=== PATIENT | male | born 1970 | race Caucasian/White ===

== ENCOUNTER 2023-08-14 07:53 | Emergency (ER) | payer BC, SELFPAY ==
--- NOTE | 2023-08-14 08:00 | ED.GENMED ---
History of Present Illness
General
Chief Complaint: Dizziness
Time Seen by Provider: 08/14/23 07:58
Travel History
Have you had any contact with someone who has COVID-19?: No
Do you have any symptoms of coronavirus? Fever > 100 degrees, chills, cough, shortness of breath, sore throat, loss of taste or smell, muscle aches, or headache?: No
History of Present Illness
History of Present Illness:
HPI: The patient works at [employer]. He comes in because of progression of dizziness and headache on the left side. This started about a month ago associated with an infected tooth. He states that he saw an ENT physician and has
him on antibiotics and wanted to get an MRI at some point. The patient states that ENT was suspecting M�ni�re's. The MRI was not set up. He was at [facility] yesterday for similar symptoms but no neuroimaging was obtained.
EXAM:
GENERAL: Well appearing in no distress
HEENT: Moist oral mucosa, minimal tenderness to the left side of the jaw
CARDIOVASCULAR: No murmurs, normal heart rate, regular rhythm, No chest wall tenderness
PULMONARY: No respiratory distress, breath sounds are clear and equal
ABDOMEN: Soft with no peritoneal signs, no tenderness
NEUROLOGIC: Excellent strength all extremities, no coordination deficits, normal finger-nose testing
PSYCHIATRIC: Appropriate mental status, normal insight and judgement
EXTREMITIES: Nontender, no edema, moves all extremities equally
SKIN: No rash, no lesions
TIME OF INITIAL ENCOUNTER: 8 AM
NUMBER AND COMPLEXITY OF PROBLEMS ADDRESSED AT THE ENCOUNTER
� Chronic conditions affecting care: Depression
� Acute Exacerbation and/or Progression of Chronic Illness: This is a subacute problem
� Differential Diagnosis includes: Intracranial mass, intracranial bleeding, hyponatremia, other electrolyte abnormality, anemia, M�ni�re's
AMOUNT AND/OR COMPLEXITY OF DATA TO BE REVIEWED AND ANALYZED
� I performed an independent evaluation of and my interpretation is:
EKG: Sinus 69, left axis deviation, no acute ST abnormality, borderline LVH
CT: CT imaging suggest right-sided ethmoid sinus disease. No intracranial abnormality
X-rays:
Laboratory Studies: White count and hemoglobin are both normal, chemistries are normal
Other:
� Review of other/old records: The patient was seen here 2019 with lumbar radiculopathy
� Clinical information was obtained by an independent historian: I spoke to EMS at bedside. I then spoke to Armin Sahu, brother, as he called here earlier voicing his concerns. Shola Hernandez called brother to inform him
that he was crying in his truck. He is on 'a happy pill' and pt states he has been taking it. He has had hypochondria / panic attacks.
� Prescriptions/Medications Considered but not given:
� Further testing considered but not performed:
RISK OF COMPLICATIONS AND/OR MORBIDITY OR MORTALITY OF PATIENT MANAGEMENT
� Social determinants of health affecting care: Works at [employer],
� Discussion with other providers: Both brother and roommate called concerned for crisis evaluation�crisis did evaluate the patient at 9 AM and crisis agrees that there is no clear indication for psychiatric treatment at this
time.
� Escalation of care including admission/observation vs risk of discharge considered: Will give IV fluids and check neuroimaging as well as labs. The patient is well-appearing. The patient states that he is on amoxicillin (not
Augmentin). Will switch to Augmentin with steroids as well. His ENT is through [place].
Past History
Past History
ED Past Medical History: Psychiatric (depression) and Other (Lyme disease)
Phy Exam
Physical Exam
Physical Exam:
See HPI
Course
Orders/Labs/Results
Orders:
Orders
08/14/23 07:57
Electrocardiogram (*1) Urgent
Reason for Study: Vertigo / Dizzy
EKG- Treatment ONCE
08/14/23 07:58
CT Head W/o Iv Contrast Urgent
Comment:
Reason For Exam: L YBARRA, dizzy
08/14/23 08:00
0.9% Sodium Chloride 1000 ml [Nss] 1,000 ml IV BOLUS
08/14/23 08:12
CMP [Comprehensive Metabolic Panel] Urgent
Complete Blood Count/With Diff Urgent
08/14/23 08:35
Crisis Consult Urgent
Reason for Consult: crisis eval
Abnormal Lab Results
08/14/23
08:12
RBC 4.48 L 10^6/uL
(4.70-6.10)
Hct 38.1 L %
(39.0-52.0)
08/14/23 08:12
08/14/23 08:12
Vital Signs
Initial and Last Documented VS:
Initial Vital Signs
Temp Pulse Resp BP Pulse Ox
97.5 F 70 16 142/88 100
08/14/23 08:01 08/14/23 08:01 08/14/23 08:01 08/14/23 08:01 08/14/23 08:01
Last Documented Vital Signs
Temp Pulse Resp BP Pulse Ox
97.5 F 70 16 142/88 100
08/14/23 08:01 08/14/23 08:01 08/14/23 08:01 08/14/23 08:01 08/14/23 08:01
*Critical Care Note
Total Time (30-74mins, 75-104mins- exclusive of procedures): Not Applicable
ED Attending Note
-
Portions of this chart may have been created with voice recognition software.� Occasional wrong word or��sound alike� substitutions may have occurred due to the inherent limitations of voice recognition software.
Discharge Plan
Departure
Patient Disposition: Home (Routine Discharge)
Date of Disposition: 08/14/23
Time of Disposition: 09:05
Patient with high blood pressure during this ER visit?: Yes
Discharge Problem:
Dizziness
Instructions: Dizziness
Prescriptions:
New
amoxicillin-pot clavulanate 875-125 mg tablet
1 tab PO BID Qty: 14 0RF
prednisone 50 mg tablet
50 mg PO DAILY Qty: 5 0RF
No Action
sertraline 100 mg Tablet
100 mg PO DAILY
Referrals:
Bradley Terry MD [Active] - Follow up in 5-7 days
Afshin Monroe MD [Active] - Follow up in 5-7 days
UNKNOWN - PT DOES,NOT KNOW [Family Provider] -
Activity Restrictions/Additional Instructions:
The radiologist notes right-sided ethmoid sinusitis. I have switched you to a stronger antibiotic�this 1 will have amoxicillin with a second ingredient therefore stop the regular amoxicillin that you are already on. We can also try steroids which
may help dizziness as well and help decrease inflammation. I recommend that you follow-up with your ENT doctor at [place]. I have also given you the contact information for a local neurologist and local ENT associated with [place].
Interventions
Interventions:
*Risk Screen - Suicide Last Done: 08/14/23 08:14
*General Assessment Last Done: 08/14/23 08:14
*Neglect/Abuse Screening Last Done: 08/14/23 08:14
ED- Fall Risk Assessment Last Done: 08/14/23 08:02
*ED COVID-19 Vaccine History Last Done: 08/14/23 08:02
ED- Neurological Assessment Last Done: 08/14/23 08:08
ED- Cardiac Assessment Last Done: 08/14/23 08:02
Discharge Date and Time
Print Language: ITALIAN
[2023-08-14 08:01] VITALS: BP 142/88
[2023-08-14] MEDS: NSS 1000 IV (08:11)
[2023-08-14 08:25] LABS: % Basophils 0.4 % (0-2); % Eosinophils 3.7 % (0-6); % Immature Granulocytes 0.4 % (0-0.5); % Monocytes 9.3 % (1.7-9.3); % Neutrophils 58.2 % (42.2-75.2); Absolute Eosinophils 0.3 10^3/uL (0-0.7); Absolute Lymphocytes 1.9 10^3/uL (1.2-3.4); Absolute Monocytes 0.6 10^3/uL (0.1-0.6); Hematocrit 38.1 % (39.0-52.0); Hemoglobin 13.6 g/dL (13.0-18.0); Mean Corp Hgb Conc. 35.7 g/dL (33.0-37.0); Mean Corpuscular Hgb 30.4 pg (27.0-31.0); Mean Platelet Volume 9.1 fL (7.4-10.4); Nucleated Red Blood Cells % 0 % (-); Platelet Count 236 10^3/uL (130-400); Red Blood Cell Count 4.48 10^6/uL (4.70-6.10); Red Cell Dist. Width 11.5 % (11.5-14.5); White Blood Cell Count 6.8 10^3/uL (4.8-10.8)
[2023-08-14 08:43] LABS: ALT (SGPT) 41 U/L (0-50); AST (SGOT) 30 U/L (17-59); Albumin 4.8 g/dl (3.5-5.0); Alkaline Phosphatase 48 U/L (38-126); Blood Urea Nitrogen 19 mg/dl (9-20); Calcium 9.8 mg/dl (8.4-10.2); Carbon Dioxide 28 mmol/L (22-30); Chloride 99 mmol/L (98-107); Glucose 98 mg/dl (70-99); Potassium 4.1 mmol/L (3.5-5.1); Sodium 136 mmol/L (135-145); Total Bilirubin 0.6 mg/dl (0.2-1.3); Total Protein 7.9 g/dl (6.3-8.2); eGFR > 60.00
== END 2023-08-14 10:18 | disposition home or self-care (01) ==
LOC: EMR 07:53
PROVIDERS: EMERGENCY PHYSICIAN Emergency Medicine
DX: R42 Dizziness and giddiness (principal); R51.9 Headache, unspecified
CPT/HCPCS: 99284; 96360; 70450; 80053; 85025; 93005

== ENCOUNTER 2023-09-18 22:21 | Emergency (ER) | payer BC, OTHER, SELFPAY ==
[2023-09-18 22:27] VITALS: BMI 25.7
[2023-09-18 22:32] VITALS: BP 132/58
[2023-09-18 22:35] VITALS: BP 132/58
[2023-09-18 22:41] LABS: % Basophils 0.2 % (0-2); % Immature Granulocytes 0.2 % (0-0.5); % Lymphocytes 13.2 % (20.5-51.1); % Monocytes 9.3 % (1.7-9.3); % Neutrophils 72.1 % (42.2-75.2); Absolute Eosinophils 0.4 10^3/uL (0-0.7); Absolute Lymphocytes 1.1 10^3/uL (1.2-3.4); Absolute Monocytes 0.8 10^3/uL (0.1-0.6); Hematocrit 36.3 % (39.0-52.0); Hemoglobin 13.2 g/dL (13.0-18.0); Mean Corp Hgb Conc. 36.4 g/dL (33.0-37.0); Mean Corpuscular Hgb 30.5 pg (27.0-31.0); Mean Corpuscular Volume 83.8 fL (80.0-94.0); Mean Platelet Volume 8.8 fL (7.4-10.4); Nucleated Red Blood Cells % 0 % (-); Platelet Count 194 10^3/uL (130-400); Red Blood Cell Count 4.33 10^6/uL (4.70-6.10); Red Cell Dist. Width 11.6 % (11.5-14.5); White Blood Cell Count 8.3 10^3/uL (4.8-10.8)
[2023-09-18 22:59] LABS: ALT (SGPT) 30 U/L (0-50); AST (SGOT) 24 U/L (17-59); Albumin 4.5 g/dl (3.5-5.0); Alkaline Phosphatase 56 U/L (38-126); Blood Urea Nitrogen 19 mg/dl (9-20); Calcium 9.5 mg/dl (8.4-10.2); Carbon Dioxide 26 mmol/L (22-30); Chloride 100 mmol/L (98-107); Estimated Creatinine Clearance 87 ml/min; Glucose 120 mg/dl (70-99); Potassium 3.9 mmol/L (3.5-5.1); Sodium 135 mmol/L (135-145); Total Bilirubin 0.6 mg/dl (0.2-1.3); Total Protein 7.2 g/dl (6.3-8.2); eGFR > 60.00
[2023-09-18 23:00] VITALS: BP 125/69
--- NOTE | 2023-09-18 23:04 | ED.GENMED ---
History of Present Illness
<KARSTEN Neumann - Last Filed: 09/19/23 04:21>
General
Chief Complaint: Medication Reaction
Source: patient
Exam Limitations: none
Time Seen by Provider: 09/18/23 22:50
Nursing documentation reviewed up to this point in time: agreed with
Travel History
Have you had any contact with someone who has COVID-19?: No
Do you have any symptoms of coronavirus? Fever > 100 degrees, chills, cough, shortness of breath, sore throat, loss of taste or smell, muscle aches, or headache?: Yes
Symptoms:: chills
History of Present Illness
History of Present Illness:
This is a 53 year old male with history of depression who presents to the ED via ambulance with complaint feeling 'out of it x2 days.' His roommate found him laying on the bedroom floor crying. He states he was seen at [facility] last week and
diagnosed with prostatitis. He was started on Ciprofloxacin, but he discontinued it after a few days because it made it him disorientated, confused, and 'out of it.' His PCP switched him to Bactrim which he started yesterday, but he reports having a
similar reaction of feeling disoriented. He reports having vomiting after each dose. He also reports recent change in Zoloft dosage. He has been on 100mg for multiple years and was switched to 150mg last week. However, with all these recent
symptoms, he asked his PCP to be switched back to 100mg yesterday. Today, he complains of headache and brain fog. He denies lightheadedness, dizziness, chest pain or pressure, shortness of breath. He denies suicidal or homicidal ideations.
Past History
<KARSTEN Neumann - Last Filed: 09/19/23 04:21>
Past History
ED Past Medical History: Psychiatric (depression) and Other (Lyme disease)
Review of Systems
<KARSTEN Neumann - Last Filed: 09/19/23 04:21>
Review of Systems
Allergies reviewed?: Yes
All Other Systems: Not applicable
Constitutional: Reports other ('out of it', brain fog)
EENT: Reports no symptoms
Respiratory: Reports no symptoms
Cardiac: Reports no symptoms
ABD/GI: Reports no symptoms
: Reports no symptoms
Musculoskeletal: Reports no symptoms
Skin: Reports no symptoms
Neurological: Reports headache
Endocrine: Reports no symptoms
Hematologic/Lymphatic: Reports no symptoms
Psychiatric: Reports no symptoms
Phy Exam
<KARSTEN Neumann - Last Filed: 09/19/23 04:21>
General Physical Exam
General Presentation: well appearing and no apparent distress
General Skin: warm and dry
General Habitus: normal
General Mental: alert
General Hydration: appears well hydrated
ENT Exam
ENT Exam: EOMI, pharynx normal, neck supple and normocephalic
Eye Exam
Eye Exam: PERRL, cornea clear and conjunctiva normal
Cardiovascular Exam
Cardiovascular Exam: regular rate/rhythm, no edema, no murmur and normal peripheral pulses
Pulmonary Exam
Pulmonary Exam: lungs clear, no respiratory distress, no rales, no crackles, no rhonchi, no stridor, no wheezing and no cough
Gastrointestinal Exam
Gastrointestinal Exam: normal bowel sounds, non tender, soft, no organomegaly, no pulsatile mass and non distended
Neurological Exam
Neurological Exam: alert, oriented x3, no motor deficits and speech normal
Musculoskeletal Exam
Musculoskeletal Exam: full ROM and no edema
Skin Exam
Skin Exam: normal color, warm/dry, no rash and no petechia
Psychiatric Exam
Psychiatric Exam: normal mood/affect
Course
<KARSTEN Neumann Last Filed: 09/19/23 04:21>
Orders/Labs/Results
Orders:
Orders
09/18/23 22:36
Complete Blood Count/With Diff Urgent
Comprehensive Metabolic Panel Urgent
09/18/23 23:16
0.9% Sodium Chloride 500 ml [Nss] 500 ml IV BOLUS
09/18/23 23:17
Ondansetron Injectable [Zofran] 4 mg IV NOW STA
Abnormal Lab Results
09/18/23
22:36
RBC 4.33 L 10^6/uL
(4.70-6.10)
Hct 36.3 L %
(39.0-52.0)
Absolute Lymphs (auto) 1.1 L 10^3/uL
(1.2-3.4)
Absolute Monos (auto) 0.8 H 10^3/uL
(0.1-0.6)
Lymphocytes % 13.2 L %
(20.5-51.1)
Glucose 120 H mg/dl
(70-99)
09/18/23 22:36
09/18/23 22:36
Vital Signs
Initial and Last Documented VS:
Initial Vital Signs
Pulse Resp
78 23
09/18/23 22:26 09/18/23 22:26
Last Documented Vital Signs
Temp Pulse Resp BP Pulse Ox
98.0 F 70 18 127/69 96
09/18/23 22:27 09/19/23 00:30 09/19/23 00:30 09/19/23 00:00 09/18/23 22:45
<Marcos Jackson DO - Last Filed: 09/19/23 03:03>
Orders/Labs/Results
Orders:
Orders
09/18/23 22:36
Complete Blood Count/With Diff Urgent
Comprehensive Metabolic Panel Urgent
09/18/23 23:16
0.9% Sodium Chloride 500 ml [Nss] 500 ml IV BOLUS
09/18/23 23:17
Ondansetron Injectable [Zofran] 4 mg IV NOW STA
Abnormal Lab Results
09/18/23
22:36
RBC 4.33 L 10^6/uL
(4.70-6.10)
Hct 36.3 L %
(39.0-52.0)
Absolute Lymphs (auto) 1.1 L 10^3/uL
(1.2-3.4)
Absolute Monos (auto) 0.8 H 10^3/uL
(0.1-0.6)
Lymphocytes % 13.2 L %
(20.5-51.1)
Glucose 120 H mg/dl
(70-99)
09/18/23 22:36
09/18/23 22:36
Vital Signs
Initial and Last Documented VS:
Initial Vital Signs
Pulse Resp
78 23
09/18/23 22:26 09/18/23 22:26
Last Documented Vital Signs
Temp Pulse Resp BP Pulse Ox
98.0 F 70 18 127/69 96
09/18/23 22:27 09/19/23 00:30 09/19/23 00:30 09/19/23 00:00 09/18/23 22:45
<KARSTEN Neumann - Last Filed: 09/19/23 04:21>
MDM/Problems Addressed
Differential Diagnosis Includes:
Discontinuation syndrome vs serotonin syndrome
Serotonin syndrome considered, however less likely due to lack of symptoms including restlness, diaphoresis, hyperthermia, tachycardia, tremor, muscle rigidity, or hyperreflexia. I suspect this is due to discontinuation syndrome due to his recent
change in Sertraline dosage from 100mg to 150mg. Patient vitals and labs are stable. He is sitting comfortably and calm during examination. Recommend to follow up with urology for previous diagnosis of prostatitis and further management of
antibiotic changes.
<KARSTEN Neumann - Last Filed: 09/19/23 04:21>
*Critical Care Note
Total Time (30-74mins, 75-104mins- exclusive of procedures): Not Applicable
ED Attending Note
<KARSTEN Neumann - Last Filed: 09/19/23 04:21>
-
Portions of this chart may have been created with voice recognition software.� Occasional wrong word or��sound alike� substitutions may have occurred due to the inherent limitations of voice recognition software.
<Marcos Jackson DO - Last Filed: 09/19/23 03:03>
ED Attending Note
Patient seen and examined by attending physician: Yes
I performed the substantive portion of visit, reviewed & personally made and approve the management plan that is documented in note by myself or JUSTIN.: Yes
ED Attending Note:
This a pleasant 53-year-old male brought in by EMS after roommate called because patient was lying on the ground and inconsolable. Patient had his dose of Zoloft switch from 100 to 150 mg a few weeks ago. Yesterday they switched his dose back to
100 mg. Today he is been having headache, nausea, and cloudiness in thought. Patient is being treated for prostatitis and initially was on clindamycin but had feelings of disorientation so he was switched to Bactrim. Patient denies chest pain or
shortness of breath. Patient was seen in conjunction with the PA student. I have reviewed and agree with the history and treatment plan presented. On my independent physical exam, patient is awake, alert, and oriented x3, no acute distress.
Heart is regular rate and rhythm. Lungs are clear to auscultation bilaterally without wheezes rales or rhonchi present. Abdomen soft and nontender. Patient has a small hiatal hernia which may be palpable on exam. Moves all 4 extremities. Skin
is warm and dry. Patient has no complaints at this time
Discharge Plan
Departure
Patient Disposition: Home (Routine Discharge)
Date of Disposition: 09/19/23
Time of Disposition: 02:00
Patient with high blood pressure during this ER visit?: Yes
Condition: Good
Discharge Problem:
Adverse drug reaction
Instructions: Adverse Drug Reactions, Adult ED, BLOOD PRESSURE
Prescriptions:
No Action
sertraline 100 mg Tablet
100 mg PO DAILY
amoxicillin-pot clavulanate 875-125 mg tablet
1 tab PO BID Qty: 14 0RF
prednisone 50 mg tablet
50 mg PO DAILY Qty: 5 0RF
Referrals:
Bridget Mckeon, [Family Provider] - Follow up in 2-3 days
Activity Restrictions/Additional Instructions:
As discussed, please speak with your urologist before discontinuing your antibiotic medication.
It was a pleasure meeting you and taking part in your care. We hope for your continued healing and wellness.
Please read discharge instructions in their entirety. However, they are for general education and may not describe your exact diagnosis at discharge. Information on your ER visit and medical conditions were discussed with you along with appropriate
follow up information...
If indicated, please take your medications as instructed and indicated on discharge paperwork.
Please schedule a follow up appointment as directed. Call to schedule an appointment
Please return to the emergency department with ANY change in, persisting, or worsening of symptoms. If any of your symptoms do not improve, or persist, or become more severe within 6-12 hours, please return to the emergency department for further
care.
Please return to the emergency department if you develop a headache, neck pain/stiffness, fever greater than 100.4F, chest pain, shortness of breath, persistent nausea, vomiting, slurred speech, difficulty walking, numbness/tingling, weakness, signs
of infection or any other symptoms that are worrisome to you.
If you have any questions or concerns please do not hesitate to call the Hospital at or E-mail me directly at [email or web address]
Interventions
Interventions:
*Risk Screen - Suicide Last Done: 09/18/23 22:27
*General Assessment Last Done: 09/18/23 22:27
*Neglect/Abuse Screening Last Done: 09/18/23 22:27
*ED COVID-19 Vaccine History Last Done: 09/18/23 22:27
*Nursing Disposition Last Done: 09/19/23 03:08
Discharge Date and Time
Discharge Date/Time: 09/19/23 02:35
Print Language: HEBREW
[2023-09-18] MEDS: NSS 500 IV (23:23)
[2023-09-18] MEDS: ZOFRAN 4 MG IV (23:24)
[2023-09-19] VITALS: BP 127/69
--- NOTE | 2023-09-19 03:05 | DOWNTIME ---
There was a [employer] Client Sounding Device Operator Downtime on 09/18/2023 from 0100 to 09/19/2023 at 0300. Downtime documentation of patient's care, including medication administrations, has been reconciled in the electronic record per guidelines. Refer to the
patient's paper chart under the miscellaneous tab to see printed paper medication records and downtime forms.
== END 2023-09-19 02:35 | disposition home or self-care (01) ==
LOC: EMR 22:21
PROVIDERS: EMERGENCY PHYSICIAN Student in an Organized Health Care Education/Training Program; FAMILY PHYSICIAN Family Medicine
DX: R51.9 Headache, unspecified (principal); T36.8X5A Adverse effect of other systemic antibiotics, initial encounter; Y92.9 Unspecified place or not applicable; F32.A Depression, unspecified; K44.9 Diaphragmatic hernia without obstruction or gangrene; N41.9 Inflammatory disease of prostate, unspecified
CPT/HCPCS: 99283; 96374; 96361; 80053; 85025